=== PATIENT | male | born 1970 | race Caucasian/White ===

== ENCOUNTER 2018-03-24 07:07 | Emergency (ER) | payer SELFPAY ==
[2018-03-24 07:10] VITALS: BP 135/81; PULSE 104; RESP 18; TEMP 36.8; O2SAT 95; BMI 26.4
--- NOTE | 2018-03-24 08:02 | ED.VISSUMM ---
- ER Visit Summary Date of Service: 03/24/18 Chief Complaint: Cough [] History of Present Illness: The patient is a 47 M [presents to the emergency department complaint of cough for about a week. Patient complains of diffuse body aches as well as sore throat and headache. Patient states the cough is been nonproductive. Patient has not had any documented fever at home. 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 Patient complains of pain in his chest with cough. He denies leg pain or swelling.] Physical Examination: [HEENT-PERRLA, EOMI. Cranial nerves II through XII grossly intact. TMs clear. Mucous membranes moist. No adenopathy. Cardiovascular-regular rate and rhythm without murmur or ectopy Lungs-clear to auscultation, chest wall stable without crepitus or subcu emphysema Abdomen-normoactive bowel sounds, soft, nontender, no rebound or rigidity, no peritoneal signs. Extremities-intact ?4, normal range of motion, normal pulses, atraumatic] Test Results: [Chest x-ray obtained was normal. Influenza screen was negative.] Emergency Department Course and Treatment: [] Treatment Plan: [Patient will be given a prescription for Tessalon Perles and Naprosyn] Disposition: [Discharged home in stable condition] Impression: [Viral URI] This note was generated with [facility] dictation software. It may contain incorrect words, spelling, and punctuation that were not noted in review of the chart prior to signing ED Disposition - Plan for ED Patient: Referrals: Ramu Agarwal MD [Primary Care Provider] -
--- NOTE | 2018-03-24 08:03 | RAD_ITS ---
STUDY: X-RAY CHEST REASON FOR EXAM: Male, 47 years old. Cough. TECHNIQUE: PA and lateral views of the chest. COMPARISON: None. FINDINGS: The lungs are clear and expanded. Calcified granuloma in the lateral aspect of the left mid lung. There is no demonstrated pleural abnormality. Normal size heart. Normal mediastinum and roxanne. Normal visualized pulmonary arteries. Normal visualized aortic arch and descending thoracic aorta. 50% loss of height of a mid dorsal vertebrae. Normal visualized ribs, clavicles, and shoulders. There is no demonstrated abnormality of the visualized soft tissue structures of the upper abdomen. RAD/Chest PA and Lateral IMPRESSION: Normal x-ray examination of the chest. Electronically Signed: Min Grimm MD at 9:47 EST , Service support ,
--- NOTE | 2018-03-24 10:11 | ED.DEP ---
ED Disposition - Plan for ED Patient: Instructions: ED URI Viral Prescriptions: Benzonatate [Tessalon Perle] 200 mg PO TID PRN PRN #20 cap PRN Reason: Cough Naproxen [Naprosyn] 500 mg PO BID PRN #20 tab Referrals: Ramu Agarwal MD [Primary Care Provider] - 5-7 Days
== END 2018-03-24 10:18 | disposition home or self-care (01) ==
PROVIDERS: Emergency Provider Emergency Medicine; Family Provider Internal Medicine; PCP Internal Medicine
DX: J06.9 Acute upper respiratory infection, unspecified (principal); I10 Essential (primary) hypertension
CPT/HCPCS: 71046; 87804; 99282

== ENCOUNTER 2020-09-14 18:52 | Emergency (ER) | payer SELFPAY ==
[2020-09-14 18:55] VITALS: BP 172/119; PULSE 86; RESP 18; TEMP 37.1; O2SAT 98; BMI 28.5
--- NOTE | 2020-09-14 20:39 | RAD_ITS ---
STUDY: X-RAY - LEFT KNEE REASON FOR EXAM: Male, 49 years old. Nontraumatic pain TECHNIQUE: 3 view(s) of the knee. COMPARISON: None. FINDINGS: Normal visualized distal femur. Normal visualized proximal tibia and fibula. Normal proximal tibiofibular articulation. There is no demonstrated fracture. Normal medial femorotibial compartment. Normal lateral femorotibial compartment. Normal patellofemoral articulation. There is no demonstrated joint effusion. The soft tissue structures are unremarkable. RAD/Knee 3 Views IMPRESSION: Normal x-ray examination of the knee. Electronically Signed: Alex Somers MD at 22:08 EDT , Service support ,
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
--- NOTE | 2020-09-14 21:15 | RAD_ITS ---
STUDY: X-RAY - PELVIS AND LEFT HIP REASON FOR EXAM: Male, 49 years old. NOntraumtic pain TECHNIQUE: 3 views of the pelvis and hip. COMPARISON: None. FINDINGS: There is a non-specific bowel gas pattern. Normal visualized soft tissue structures. No visualized fracture. No avascular necrosis. Normal bilateral iliac wings, sacroiliac joints and visualized sacrum. Normal bilateral superior and inferior pubic rami. Normal pubic symphysis. Normal bilateral ischial tuberosities. Normal visualized femoral head. Normal acetabulum. Normal hip joint. RAD/HIP, UNI W/ Pelvis 2-3 Views IMPRESSION: Normal x-ray examination of the pelvis and hip. Electronically Signed: Alex Somers MD at 22:10 EDT , Service support ,
[2020-09-14] MEDS: HYDROcodone Bitartrate/Apap 5/325 Tablet PO (21:32)
[2020-09-14 22:50] VITALS: RESP 18
== END 2020-09-14 22:50 | disposition home or self-care (01) ==
PROVIDERS: Emergency Provider Emergency Medicine; PCP Internal Medicine
DX: M25.552 Pain in left hip (principal); M25.562 Pain in left knee; M10.9 Gout, unspecified; I10 Essential (primary) hypertension; Z79.52 Long term (current) use of systemic steroids; Z79.899 Other long term (current) drug therapy
CPT/HCPCS: 73502; 73562; 99285

== ENCOUNTER 2021-03-13 20:19 | Emergency (ER) | payer SELFPAY ==
[2021-03-13 20:20] VITALS: BP 160/90; PULSE 84; RESP 16; TEMP 36.2; O2SAT 100; BMI 27.3
[2021-03-13 20:34] VITALS: O2SAT 98
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
[2021-03-13 20:55] LABS: Absolute Lymphocyte Count 1.37 X10^3/uL (0.83-4.51); Absolute Neutrophil Count 3.1 X10^3/uL (2.0-7.7); Basophil# 0.11 X10^3/uL; Basophil% 1.9 % (0-1); Eosinophil# 0.29 X10^3/uL; Eosinophils% 4.9 % (0-5); Hematocrit 42.5 % (40-54); Hemoglobin 14.3 g/dL (13.0-16.5); Lymphocyte # 1.37 X10^3/ul (0.83-4.51); Lymphocyte % 23.3 % (19-41); Mean Corp Hgb Conc 33.6 g/dL (32-36); Mean Corpuscular Hgb 30.4 pg (27.0-32.0); Mean Corpuscular Volume 90.4 fL (80-94); Mean Platelet Vol. 10.4 fl (6.2-12.0); Monocyte# 0.94 X10^3/uL; NRBC Flagged by Analyzer 0 % (0-5); Neutrophil # 3.12 X10^3/uL (2.7-7.7); Neutrophil % 53.2 % (47-70); Platelet Count 204 K/mm3 (150-450); RBC Distribution Width CV 11.9 % (11.6-14.6); RBC Distribution Width SD 39.2 fl (35.1-43.9); White Blood Count 5.9 K/mm3 (4.4-11.0)
--- NOTE | 2021-03-13 21:00 | RAD_ITS ---
STUDY: X-RAY CHEST REASON FOR EXAM: Male, 50 years old. CHEST PAIN Cough, exposure to Covid Notes SICK FOR PAST 3 WEEKS, STATES I JUST CAN''T GET OVER IT. WORST COMPLAINT IS COUGH. WAS COVID POSITIVE, STARTED WITH SIMILAR SYMPTOMS SAME DAY. TECHNIQUE: XR Chest 1 View COMPARISON: 04/03/2018 FINDINGS: There is no demonstrated pleural abnormality. Normal size heart. Normal mediastinum and roxanne. Normal visualized pulmonary arteries. There is atherosclerotic calcification of the aortic arch with tortuosity. There are diffuse degenerative changes of the visualized thoracic spine. Normal visualized ribs, clavicles, and shoulders. There is no demonstrated abnormality of the visualized soft tissue structures of the upper abdomen. RAD/Chest 1 View (Portable) IMPRESSION: There are no acute findings. Electronically Signed: Angel Moyer MD at 21:28 EST ,
[2021-03-13 21:09] LABS: Anion Gap 11 (5-15); BUN 7 mg/dL (7-18); BUN/Creat Ratio 7.7 RATIO (10-20); Calcium,Total 8.2 mg/dL (8.5-10.1); Chloride 104 mmol/L (98-107); EST Glomerular Filtration Rate 94 mL/min (>60); Est Glom Filt Rate - Afr Amer 114 mL/min (>60); Glucose 86 mg/dL (74-106); Potassium 3.7 mmol/L (3.5-5.1); Sodium Level 137 mmol/L (136-145)
[2021-03-13] MEDS: Doxycycline 100 MG CAPSULE PO (22:24)
[2021-03-13] MEDS: guaiFENesin/Codeine 5 ML UDC PO (22:24)
[2021-03-13 22:31] VITALS: BP 117/70; O2SAT 98
== END 2021-03-13 23:02 | disposition home or self-care (01) ==
PROVIDERS: Emergency Provider Emergency Medicine; PCP Internal Medicine; Visit Provider Emergency Medicine
DX: U07.1 COVID-19 (principal); R19.7 Diarrhea, unspecified; I10 Essential (primary) hypertension; Z20.822 Contact with and (suspected) exposure to COVID-19; M10.9 Gout, unspecified; Z79.899 Other long term (current) drug therapy
CPT/HCPCS: 71045; 80048; 85025; 87635; 99284; A4216; U0003; U0005

== ENCOUNTER 2022-01-01 10:53 | Emergency (ER) | payer OTHER, SELFPAY ==
[2022-01-01 10:54] VITALS: BP 194/121; PULSE 87; RESP 14; TEMP 36.7; O2SAT 98; BMI 27.0
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
--- NOTE | 2022-01-01 11:13 | CT_ITS ---
STUDY: CT BRAIN WITHOUT CONTRAST REASON FOR EXAM: Male, 51 years old. Headaches. RADIATION DOSAGE (If Supplied By Facility): CTDIvol = ( 44.99 ) mGy, DLP = ( 849.54 ) mGycm TECHNIQUE: Transaxial CT imaging of the brain was performed without administration of intravenous contrast material. Individualized dose optimization techniques were used for this CT. COMPARISON: No relevant priors. FINDINGS: Normal soft tissue structures. Normal calvarium. Normal size ventricles and extra-axial spaces for the patient''s age. Normal white matter tracts of the cerebral hemispheres. Normal basal ganglia and thalami. Normal brainstem. Normal cerebellum. There is no intracranial hemorrhage. There are no findings of an acute ischemic infarction. Normal visualized paranasal sinuses. CT/Brain/Head without Contrast IMPRESSION: Normal unenhanced CT scan of the brain. Electronically Signed: Min Grimm MD at 12:42 EST ,
--- NOTE | 2022-01-01 11:17 | CT_ITS ---
STUDY: CTA CHEST, ABDOMEN T PELVIS WITH CONTRAST REASON FOR EXAM: Male, 51 years old. Dissection study. Headaches. Back pain. RADIATION DOSAGE (If Supplied By Facility): CTDIvol = ( 16.17 ) mGy, DLP = ( 995.3 ) mGycm TECHNIQUE: Transaxial imaging was performed following intravenous administration of IV 100mL [id number]-[id number]. Multiplanar coronal and sagittal images were reformatted. Individualized dose optimization techniques were used for this CT. COMPARISON: No relevant priors. FINDINGS: CHEST The lungs are normal. There is no demonstrated pleural abnormality. Normal heart and pericardium. There are multiple small lymph nodes within the mediastinum, which are normal in size and morphology most compatible with reactive lymph hyperplasia. Calcified left hilar lymph nodes. Normal unenhanced pulmonary arteries. Normal aorta arch and descending thoracic aorta. Normal osseous structures. There is no demonstrated abnormality of the visualized upper abdomen. ABDOMEN The visualized lung bases are unremarkable. The visualized portions of the heart are within normal limits. There is decreased attenuation of the liver consistent with steatosis. Normal gallbladder and extrahepatic biliary system. Normal spleen. Normal pancreas. Normal bilateral adrenal glands. Normal right kidney. Normal left kidney. Normal visualized stomach. Normal small intestine. Normal colon. The appendix is visualized and appears normal. There is scattered atherosclerotic calcification of the abdominal aorta, without a demonstrated aneurysm. Normal inferior vena cava. Normal retroperitoneum. There is a small umbilical hernia containing fat. Normal osseous structures. PELVIS Distended urinary bladder. Normal visualized small intestine. Normal visualized colon. There is no pelvic fluid. There is no pelvic lymphadenopathy or mass lesion. Normal visualized pelvic arteries. Normal abdominal wall. Normal osseous structures. CT/CTA Chst, Abd, Pel W and/or WO IMPRESSION: Normal enhanced CT chest, abdomen T pelvis examination. Electronically Signed: Min Grimm MD at 12:55 EST ,
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
[2022-01-01 11:39] LABS: Basophil# 0.06 X10^3/uL; Basophil% 1.2 % (0-1); Eosinophil# 0.11 X10^3/uL; Eosinophils% 2.2 % (0-5); Hematocrit 45.9 % (40-54); Hemoglobin 15.5 g/dL (13.0-16.5); Lymphocyte % 25.9 % (19-41); Mean Corp Hgb Conc 33.8 g/dL (32-36); Mean Corpuscular Hgb 30.9 pg (27.0-32.0); Mean Corpuscular Volume 91.4 fL (80-94); Monocyte# 0.48 X10^3/uL; Monocyte% 9.6 % (0-10); NRBC Flagged by Analyzer 0 % (0-5); Neutrophil # 3.03 X10^3/uL (2.7-7.7); Neutrophil % 60.5 % (47-70); Platelet Count 189 K/mm3 (150-450); RBC Distribution Width CV 11.9 % (11.6-14.6); RBC Distribution Width SD 40.1 fl (35.1-43.9); Red Blood Count 5.02 M/mm3 (4.6-6.2)
[2022-01-01 11:58] LABS: ALB/GLOB Ratio 1.1 RATIO (0.9-2.4); AST(SGOT) 66 U/L (15-37); Alanine Aminotransfer ALT/SGPT 123 U/L (16-61); Alkaline Phosphatase 50 U/L (45-117); Anion Gap 7 (5-15); BUN 11 mg/dL (7-18); BUN/Creat Ratio 12.5 RATIO (10-20); Calcium,Total 9.6 mg/dL (8.5-10.1); Chloride 107 mmol/L (98-107); Creatinine, Serum 0.88 mg/dL (0.70-1.30); EST Glomerular Filtration Rate 97 mL/min (>60); Est Glom Filt Rate - Afr Amer 117 mL/min (>60); Estimated Creatinine Clearance 96.08 ml/min; Globulin 3.5 g/dL (2.2-4.2); Glucose 98 mg/dL (74-106); Potassium 4.3 mmol/L (3.5-5.1); Protein, Total 7.5 g/dL (6.4-8.2); Sodium Level 140 mmol/L (136-145); Troponin-I HS 4 pg/mL (3.0-78.0)
[2022-01-01] MEDS: Ondansetron 4 MG/2 ML Vial IV (12:37)
[2022-01-01] MEDS: Morphine 4 MG/ML Syringe IV (12:37)
[2022-01-01 14:03] VITALS: BP 129/74; PULSE 64; RESP 15; O2SAT 98
== END 2022-01-01 14:04 | disposition home or self-care (01) ==
PROVIDERS: Emergency Provider Student in an Organized Health Care Education/Training Program; PCP Internal Medicine; Visit Provider Student in an Organized Health Care Education/Training Program
DX: M47.22 Other spondylosis with radiculopathy, cervical region (principal); S02.40E Zygomatic fracture, right side; S16.1XXD Strain of muscle, fascia and tendon at neck level, subsequent encounter; W22.8XXD Striking against or struck by other objects, subsequent encounter; I10 Essential (primary) hypertension; R07.9 Chest pain, unspecified
CPT/HCPCS: 70450; 70486; 71275; 72125; 74174; 80053; 84484; 85025; 93005; 96374; 96375; 99283; Q9967; A4216; J2405

== ENCOUNTER 2022-01-11 09:55 | Emergency (ER) | payer OTHER, SELFPAY ==
[2022-01-11 09:57] VITALS: BP 200/113; PULSE 92; RESP 16; TEMP 37.1; O2SAT 100; BMI 26.1
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
[2022-01-11] MEDS: predniSONE 20 MG Tablet 60 MG PO (11:49)
[2022-01-11] MEDS: Gabapentin 300 MG Capsule PO (11:49)
== END 2022-01-11 11:52 | disposition home or self-care (01) ==
PROVIDERS: Emergency Provider Emergency Medicine; PCP Internal Medicine; Visit Provider Emergency Medicine
DX: M50.121 Cervical disc disorder at C4-C5 level with radiculopathy (principal); I10 Essential (primary) hypertension; Z79.899 Other long term (current) drug therapy
CPT/HCPCS: 99283

== ENCOUNTER → 2022-02-06 | Outpatient (CLI) | payer OTHER, SELFPAY ==
--- NOTE | 2022-02-06 07:16 | MRI_ITS ---
HISTORY: cervical radiculopathy to LUE. TECHNIQUE: Multiplanar and multisequence MR images of the cervical spine were obtained without contrast. 279 images. COMPARISON: CT 01/01/2022. FINDINGS: VERTEBRAE: Cervical vertebral body heights maintained. Mild degenerative bone marrow endplate changes of C4-5. Chronic minimal anterior wedging of T3 with a small vertebral body hemangioma incidentally noted. VERTEBRAL ALIGNMENT: No anterior or posterior subluxation. SPINAL CORD: Cervical cord signal and morphology within normal limits. SOFT TISSUES: No prevertebral fluid collection. INTERVERTEBRAL DISCS: C2-3: No significant posterior disc protrusion, central canal stenosis, or foraminal narrowing. C3-4: Mild disc bulge with uncovertebral and facet arthropathy resulting in mild central canal stenosis and bilateral foraminal narrowing. C4-5: Mild posterior disc bulge osteophyte complex with uncovertebral and facet arthropathy resulting in mild central canal stenosis and moderate bilateral foraminal narrowing. C5-6: No significant posterior disc protrusion or central canal stenosis. Uncovertebral and facet arthropathy resulting in moderate left and mild right foraminal narrowing. C6-7: Mild posterior disc bulge osteophyte complex with uncovertebral and facet arthropathy resulting in minimal narrowing of the thecal sac, moderate left, and mild right foraminal narrowing. C7-T1: Mild left paracentral disc protrusion abutting the left ventral cord resulting in minimal narrowing of the thecal sac and no significant foraminal narrowing. MRI/Spine Cervical (Routine) IMPRESSION: Multilevel degenerative disc disease of the cervical spine resulting in mild spinal canal stenosis and moderate foraminal narrowing as above. Electronically Signed: Sharon Samuels MD at 9:38 EST ,
== END | disposition home or self-care (01) ==
LOC: MRI 07:16
PROVIDERS: PCP Internal Medicine; Referring Provider Physician Assistant; Visit Provider Physician Assistant
DX: S16.1XXA Strain of muscle, fascia and tendon at neck level, initial encounter (principal); M54.12 Radiculopathy, cervical region
CPT/HCPCS: 72141

== ENCOUNTER 2022-07-25 08:48 | Inpatient (IN) | payer SELFPAY ==
[2022-07-25] VITALS (8 sets, daily range): BP systolic 117–152; BP diastolic 67–98; PULSE 74–84; RESP 14–18; TEMP 36.1–37; O2SAT 94–100; BMI 25.7
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
[2022-07-25 09:31] LABS: Absolute Lymphocyte Count 1.19 X10^3/uL (0.83-4.51); Absolute Neutrophil Count 3.5 X10^3/uL (2.0-7.7); Basophil# 0.11 X10^3/uL; Eosinophil# 0.14 X10^3/uL; Eosinophils% 2.5 % (0-5); Hematocrit 48.4 % (40-54); Hemoglobin 16.1 g/dL (13.0-16.5); Lymphocyte # 1.19 X10^3/ul (0.83-4.51); Lymphocyte % 21.6 % (19-41); Mean Corp Hgb Conc 33.3 g/dL (32-36); Mean Corpuscular Volume 93.3 fL (80-94); Mean Platelet Vol. 9.9 fl (6.2-12.0); Monocyte# 0.54 X10^3/uL; Monocyte% 9.8 % (0-10); NRBC Flagged by Analyzer 0 % (0-5); Neutrophil # 3.47 X10^3/uL (2.7-7.7); Neutrophil % 63.2 % (47-70); Platelet Count 220 K/mm3 (150-450); RBC Distribution Width CV 12.2 % (11.6-14.6); RBC Distribution Width SD 42.2 fl (35.1-43.9); Red Blood Count 5.19 M/mm3 (4.6-6.2); White Blood Count 5.5 K/mm3 (4.4-11.0)
[2022-07-25 09:39] LABS: Prothrombin Time (Protime)PT. 13.3 SECONDS (11.7-14.9)
[2022-07-25 09:43] LABS: Amphetamine Urine VISTA NEGATIVE (<1000 ng/mL); Barbiturate Urine VISTA NEGATIVE (< 200 ng/mL); Benzodiazepine Urine VISTA NEGATIVE (< 200 ng/mL); Cocaine Urine VISTA NEGATIVE (< 300 ng/mL); Ecstacy Urine VISTA NEGATIVE (< 500 ng/mL); Methadone Urine VISTA NEGATIVE (< 300 ng/mL); PCP Urine VISTA NEGATIVE (< 25 ng/mL); THC Urine VISTA NEGATIVE (< 50 ng/mL); Vista UDS pH Range 7
[2022-07-25 09:46] LABS: ALB/GLOB Ratio 1.1 RATIO (0.9-2.4); AST(SGOT) 110 U/L (15-37); Alanine Aminotransfer ALT/SGPT 169 U/L (16-61); Albumin, Serum 4.1 g/dL (3.2-5.0); Alkaline Phosphatase 57 U/L (45-117); Anion Gap 9 (5-15); BUN 11 mg/dL (7-18); BUN/Creat Ratio 8.8 RATIO (10-20); Calcium,Total 8.8 mg/dL (8.5-10.1); Chloride 107 mmol/L (98-107); Creatinine, Serum 1.25 mg/dL (0.70-1.30); EST Glomerular Filtration Rate 65 mL/min (>60); Est Glom Filt Rate - Afr Amer 78 mL/min (>60); Estimated Creatinine Clearance 67.64 ml/min; Globulin 3.6 g/dL (2.2-4.2); Glucose 114 mg/dL (74-106); Potassium 4.4 mmol/L (3.5-5.1); Protein, Total 7.7 g/dL (6.4-8.2); Sodium Level 141 mmol/L (136-145)
[2022-07-25] MEDS: LORazepam 2 MG/ML Syringe 1 MG IV (10:13)
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
[2022-07-25] MEDS: Phenobarbital 32.4 MG Tablet 64.8 MG PO ×3 (13:00→20:31)
[2022-07-25] MEDS: hydrOXYzine PAM 25 MG Capsule 50 MG PO (20:31)
[2022-07-25] MEDS: traZODone 100 MG Tablet PO (20:35)
[2022-07-26] VITALS (8 sets, daily range): BP systolic 83–142; BP diastolic 46–89; PULSE 56–75; RESP 14–18; TEMP 36.4–36.7; O2SAT 95–98
[2022-07-26] MEDS: 0.9% Normal Saline 1,000 ML 999 ML IV (01:02)
[2022-07-26] MEDS: 0.9% Saline Lock 10 ML Syringe IV (02:08)
[2022-07-26] MEDS: Phenobarbital 32.4 MG Tablet 64.8 MG PO ×6 (02:08→20:28)
--- NOTE | 2022-07-26 08:56 | CASEMGMT ---
Social Work SW called Treatment Navigator with [facility] to see pt. DIAN Rhodes
--- NOTE | 2022-07-26 09:33 | PCM.PN.HOSP ---
Subjective Subjective Doing well, no issues overnight. CIWA score for Objective Data Objective Data Vital Signs: Vital Signs Temp Pulse Resp BP Pulse Ox O2 Del Method 97.8 F 56 L 14 105/64 96 Room Air 07/26/22 05:35 07/26/22 05:35 07/26/22 05:35 07/26/22 05:35 07/26/22 05:35 07/26/22 05:35 Oxygen Delivery Method Room Air Weight: 167 lb 5 oz Body Mass Index (BMI) 25.7 Intake & Output: Intake and Output for Last 24 Hours 07/25/22 07/26/22 07/27/22 03:59 03:59 03:59 Intake Total 2200 / 2200 400 / 400 Balance 2200 / 2200 400 / 400 Lab / Micro Data Result Diagrams: 07/25/22 09:23 07/25/22 09:23 Labs: Laboratory Results - last 24 hr 07/25/22 09:23: PT 13.3, INR 1.0 07/25/22 09:23: Sodium 141, Potassium 4.4, Chloride 107, Carbon Dioxide 25.0, Anion Gap 9, BUN 11, Creatinine 1.25, Estim Creat Clear Calc 67.64, Est GFR (MDRD) Af Amer 78, Est GFR (MDRD) Non-Af 65, BUN/Creatinine Ratio 8.8 L, Glucose 114 H, Calcium 8.8, Total Bilirubin 0.30, AST 110 H, ALT 169 H, Alkaline Phosphatase 57, Total Protein 7.7, Albumin 4.1, Globulin 3.6, Albumin/Globulin Ratio 1.1 07/25/22 09:23: Ethyl Alcohol 46.0 07/25/22 09:23: Urine Opiates Screen NEGATIVE, Urine Methadone Screen NEGATIVE, Ur Barbiturates Screen NEGATIVE, Ur Phencyclidine Scrn NEGATIVE, Ur Amphetamines Screen NEGATIVE, MDMA (Ecstasy) Screen NEGATIVE, U Benzodiazepines Scrn NEGATIVE, Urine Cocaine Screen NEGATIVE, U Cannabinoids Screen NEGATIVE Physical Exam Narrative General: Alert, Oriented x3, Cooperative, No apparent distress HEENT: Atraumatic, PERRLA, EOMI, Normocephalic Oral: Moist Mucosa Neck: Supple, No JVD Lungs: Clear to auscultation, Normal air movement, No rhonchi, No wheeze, No rales Cardiovascular: Regular rate, Regular Rhythm, Normal S1, Normal S2, No murmurs Abdomen: Soft, Non Tender, Non-Distended, No Hepato-splenomegaly Extremities: No edema, Capillary Refill Less than 3 Seconds Skin: No rashes, No breakdown Musculoskeletal: No Tenderness to Palpation of Joints or Extremities Neurological: Cranial nerves II-XII grossly intact, Motor Exam 5/5 strength throughout, Sensory exam intact to light touch and pain Psych/Mental Status: Normal Affect, Appropriate Assessment & Plan Assessment/Plan (1) Alcohol abuse with withdrawal without complication: PLAN: Plan 1. Acute alcohol withdrawal/anxiety ? Continue with the alcohol withdrawal protocol ? We will have him follow-up with 180 to develop an outpatient plan ? He does have hepatic steatosis with stable LFTs recommend outpatient follow-up 2. Hypertension ? Blood pressures are stable ? Resume his home blood pressure medication DVT: Ambulation Charges/Coding Visit Charges Inpatient E&M: 32307 Subs Hosp L2
[2022-07-26] MEDS: amLODIPine 10 MG Tablet PO (10:04)
[2022-07-26] MEDS: Thiamine Hydrochloride 100 MG Tablet PO (10:04)
[2022-07-26] MEDS: Folic Acid 1 MG Tablet PO (10:04)
[2022-07-26] MEDS: Lisinopril 20 MG Tablet PO (10:04)
[2022-07-26] MEDS: Metoprolol(XL)Succ 100 MG Tablet PO (10:04)
[2022-07-26] MEDS: Allopurinol 100 MG Tablet PO (10:04)
--- NOTE | 2022-07-26 15:11 | CASEMGMT ---
Social Work SW met w/pt, SDOH triggered and pt is self pay. SDOH completed, see that assessment for further details. Pt confirms has no insurance. He states he normally comes here or goes to [facility], states he qualifies for financial assist with [facility]. Pt open to resources. SW gave pt a Medicaid application w/800 number, information for prescription assist, [employer] and [facility]. SW encouraged pt to call [facility] to apply for Medicaid when he gets home. SW also advised pt when gets bill from hospital to call the number on the back for options regarding assist w/bill. Pt states understanding. No further social service needs, pt going home w/outpt follow up as set up with treatment navigator. DIAN Rhodes
--- NOTE | 2022-07-26 15:13 | ADDICTION ---
Pt was met with to complete ASAM, DUDIT, AUDIT, MT Status, D/C plan, JOSE LUIS, and RAMP assessment. Pt admits that he is struggling with high anxiety and difficulty coping with daily life stressors without the use of alcohol. Pt appears to meet criteria for 4.0LoC and pt would benefit from following up with outpatient YULY and MH assessment. Pt reports that he is not interested in following up with any [facility]ULY or MH services and [facility]. Pt has been provided with multiple resources should he change his mind. Pt's D/C plan to go home and continue to think about following up with tx, peer support, or mutual support AA meetings. Pt's to transport pt home.
[2022-07-26] MEDS: traZODone 100 MG Tablet PO (20:28)
[2022-07-27] MEDS: Phenobarbital 32.4 MG Tablet 64.8 MG PO ×6 (01:03→20:50)
[2022-07-27 02:00] VITALS: BP 113/64; PULSE 60; RESP 18; TEMP 36.4; O2SAT 97
[2022-07-27 05:18] VITALS: BP 110/62; PULSE 62; RESP 16; TEMP 36.1; O2SAT 98
[2022-07-27 08:43] VITALS: BP 106/85; PULSE 60; RESP 18; TEMP 36.6; O2SAT 97
[2022-07-27] MEDS: amLODIPine 10 MG Tablet PO (08:47)
[2022-07-27] MEDS: Thiamine Hydrochloride 100 MG Tablet PO (08:47)
[2022-07-27] MEDS: Lisinopril 20 MG Tablet PO (08:47)
[2022-07-27] MEDS: Allopurinol 100 MG Tablet PO (08:47)
[2022-07-27] MEDS: Folic Acid 1 MG Tablet PO (08:47)
--- NOTE | 2022-07-27 09:18 | PN.HOSP_ITS ---
Subjective Subjective Well, no issues overnight. CIWA score of 2 Objective Data Objective Data Vital Signs: Vital Signs Temp Pulse Resp BP Pulse Ox O2 Del Method 97.8 F 60 18 106/85 H 97 Room Air 07/27/22 08:43 07/27/22 08:43 07/27/22 08:43 07/27/22 08:43 07/27/22 08:43 07/27/22 08:43 Oxygen Delivery Method Room Air Weight: 167 lb 5.011 oz Body Mass Index (BMI) 25.7 Intake & Output: Intake and Output for Last 24 Hours 07/26/22 07/27/22 07/28/22 03:59 03:59 03:59 Intake Total 2200 / 2200 1500 / 1500 Balance 2200 / 2200 1500 / 1500 Lab / Micro Data Result Diagrams: 07/25/22 09:23 07/25/22 09:23 Physical Exam Narrative General: Alert, Oriented x3, Cooperative, No apparent distress HEENT: Atraumatic, PERRLA, EOMI, Normocephalic Oral: Moist Mucosa Neck: Supple, No JVD Lungs: Clear to auscultation, Normal air movement, No rhonchi, No wheeze, No rales Cardiovascular: Regular rate, Regular Rhythm, Normal S1, Normal S2, No murmurs Abdomen: Soft, Non Tender, Non-Distended, No Hepato-splenomegaly Extremities: No edema, Capillary Refill Less than 3 Seconds Skin: No rashes, No breakdown Musculoskeletal: No Tenderness to Palpation of Joints or Extremities Neurological: Cranial nerves II-XII grossly intact, Motor Exam 5/5 strength thro ughout, Sensory exam intact to light touch and pain Psych/Mental Status: Normal Affect, Appropriate Assessment & Plan Assessment/Plan (1) Alcohol abuse with withdrawal without complication: PLAN: Plan 1. Acute alcohol withdrawal/anxiety ? Continue with the alcohol withdrawal protocol ? Met with 180, he refuses any assistance on discharge therefore success is limited ? He does have hepatic steatosis with stable LFTs recommend outpatient follow-up 2. Hypertension ? Blood pressures are stable ? Resume his home blood pressure medication DVT: Ambulation Charges/Coding Visit Charges Inpatient E&M: 41706 Subs Hosp L2
[2022-07-27 10:10] VITALS: BP 120/88; PULSE 71; RESP 16; TEMP 36.6; O2SAT 97
[2022-07-27] MEDS: Metoprolol(XL)Succ 100 MG Tablet PO (10:10)
[2022-07-27 16:15] VITALS: BP 120/78; PULSE 73; RESP 16; TEMP 36.8; O2SAT 97
[2022-07-27 20:48] VITALS: BP 125/77; PULSE 74; RESP 18; TEMP 36.6; O2SAT 96
[2022-07-28 03:04] VITALS: BP 122/70; PULSE 61; RESP 18; TEMP 36.4; O2SAT 95
[2022-07-28] MEDS: Phenobarbital 32.4 MG Tablet 64.8 MG PO ×2 (03:06→09:49)
--- NOTE | 2022-07-28 07:53 | PCM.PN.HOSP ---
Reason for Visit Reason for Visit: Diagnoses Alcohol abuse with withdrawal, uncomplicated (07/25/22) Anxiety disorder, unspecified (07/25/22) Essential (primary) hypertension (07/25/22) Fatty (change of) liver, not elsewhere classified (07/25/22) Gout, unspecified (07/25/22) Prediabetes (07/25/22) Objective Data Objective Data Vital Signs: Vital Signs Temp Pulse Resp BP Pulse Ox O2 Del Method 97.6 F L 61 18 122/70 H 95 Room Air 07/28/22 03:04 07/28/22 03:04 07/28/22 03:04 07/28/22 03:04 07/28/22 03:04 07/28/22 03:04 Oxygen Delivery Method Room Air Weight: 75.892 kg Body Mass Index (BMI) 25.7 Intake & Output: Intake and Output for Last 24 Hours 07/26/22 07/27/22 07/28/22 23:59 23:59 23:59 Intake Total 3000 / 3000 1060 / 1060 Balance 3000 / 3000 1060 / 1060 Lab / Micro Data Result Diagrams: 07/25/22 09:23 07/25/22 09:23 Physical Exam Narrative General: Alert, Oriented x3, Cooperative, No apparent distress HEENT: Atraumatic, PERRLA, EOMI, Normocephalic Oral: Moist Mucosa Neck: Supple, No JVD Lungs: Clear to auscultation, Normal air movement, No rhonchi, No wheeze, No rales Cardiovascular: Regular rate, Regular Rhythm, Normal S1, Normal S2, No murmurs Abdomen: Soft, Non Tender, Non-Distended, No Hepato-splenomegaly Extremities: No edema, Capillary Refill Less than 3 Seconds Skin: No rashes, No breakdown Musculoskeletal: No Tenderness to Palpation of Joints or Extremities Neurological: Cranial nerves II-XII grossly intact, Motor Exam 5/5 strength throughout, Sensory exam intact to light touch and pain Psych/Mental Status: Normal Affect, Appropriate Assessment & Plan Assessment/Plan (1) Alcohol abuse with withdrawal without complication: PLAN: Plan 1. Acute alcohol withdrawal/anxiety ? Continue with the alcohol withdrawal protocol ? Met with 180, he refuses any assistance on discharge therefore success is limited ? He does have hepatic steatosis with stable LFTs recommend outpatient follow-up 2. Hypertension ? Blood pressures are stable ? Resume his home blood pressure medication DVT: Ambulation
[2022-07-28 07:57] VITALS: BP 123/77; PULSE 54; RESP 16; TEMP 36.4; O2SAT 97
[2022-07-28 08:01] VITALS: PULSE 60
[2022-07-28] MEDS: Thiamine Hydrochloride 100 MG Tablet PO (08:12)
[2022-07-28] MEDS: Folic Acid 1 MG Tablet PO (08:12)
[2022-07-28 09:43] VITALS: PULSE 67
[2022-07-28] MEDS: Metoprolol(XL)Succ 100 MG Tablet PO (09:43)
[2022-07-28] MEDS: Allopurinol 100 MG Tablet PO (09:43)
[2022-07-28] MEDS: Lisinopril 20 MG Tablet PO (09:44)
[2022-07-28] MEDS: amLODIPine 10 MG Tablet PO (09:44)
--- NOTE | 2022-07-28 10:18 | PHA.DC.MR ---
Pharmacy Service has performed discharge medication reconciliation for this patient. The patient's discharge medication list was reviewed for discrepancies and discrepancies were resolved. Home Medications allopurinol 100 mg tablet 100 mg PO DAILY 09/14/20 metoprolol succinate 100 mg tablet,extended release 24 hr 100 mg PO DAILY 09/14/20 amlodipine 10 mg tablet 10 mg PO DAILY . 07/25/22 lisinopril 20 mg tablet 20 mg PO DAILY HTN 07/25/22
--- NOTE | 2022-07-28 11:04 | PCM.DC.SUM ---
Providers Date of Admission: 07/25/22 Date of Discharge: 07/28/22 Primary Care Physician: Dr. Ramu Agarwal MD Reason For Visit: ETOH ABUSE W/ WITHDRAWAL Diagnosis Discharge Diagnosis (1) Alcohol abuse with withdrawal without complication: Status: Acute Code(s): F10.130 - Alcohol abuse with withdrawal, uncomplicated Medications at Discharge Home Medications allopurinol 100 mg tablet 100 mg PO DAILY 09/14/20 metoprolol succinate 100 mg tablet,extended release 24 hr 100 mg PO DAILY 09/14/20 amlodipine 10 mg tablet 10 mg PO DAILY . 07/25/22 lisinopril 20 mg tablet 20 mg PO DAILY HTN 07/25/22 Hospital Course Summary of Care Provided Minutes Spent on Discharge: 35 Hospital Course: Patient is a 51-year-old gentleman with history of chronic alcohol dependence admitted with acute alcohol withdrawal 1. Acute alcohol withdrawal patient admitted to regular nursing floor managed with alcohol withdrawal protocol using phenobarb taper 2. Hypertension - Blood pressure controlled, home medications continued with dose adjustment as needed 3. Gout ? Patient is on allopurinol did continue 4. DVT prophylaxis ? Low risk did encourage ambulation Physical Exam Narrative GENERAL: cooperative HEENT: Atraumatic; normocephalic EYES; Anicteric, Normal Conjunctiva NECK; supple, normal thyroid, RESPIRATORY: Diminished to auscultation CARDIOVASCULAR: Regular S1 S2, GI: soft, normoactive bowel sounds, : No Renal angle tenderness; EXTREMITIES: No edema, no clubbing, MUSCULOSKELETAL: no muscle wasting NEURO: Awake; no lateralizing signs. SKIN: No Rash PSYCH; Flat affect Weight / BMI Weight Weight: 75.892 kg Body Mass Index (BMI) 25.7 ABG / Lab / Microbiology Data Result Diagrams: 07/25/22 09:23 07/25/22 09:23 D/C Instructions Discharge Diet: No restrictions Discharge Activity: Return to Normal Activity Call your doctor if you observe: Fever of 101 or Higher, Shortness of breath, Fainting spells and Chest pain Meaningful Use Info Meaningful Use Diagnoses (Choose all that apply): None applicable Discharge Plan Admission Admit Date/Time: 07/25/22 10:18 Attending Provider: Cam Gregory Primary Care Provider: Ramu Agarwal Consulting Providers: Anika Falk ; Ney Andrews Discharge Orders/Prescriptions Prescriptions: Continued metoprolol succinate 100 mg tablet extended release 24 hr 100 mg PO DAILY Label Comments: take 1 tablet by mouth once daily allopurinol 100 mg tablet 100 mg PO DAILY Label Comments: take 1 tablet by mouth once daily for gout lisinopril 20 mg tablet 20 mg PO DAILY Label Comments: take 1 tablet by mouth once daily amlodipine 10 mg tablet 10 mg PO DAILY Label Comments: take 1 tablet by mouth once daily Referrals / Follow Up: Ramu Agarwal MD [Primary Care Provider] - Within 2 Weeks Disposition Disposition (needs filled in before D/C Order can be placed): Home, Self Care Charges/Coding Visit Charges Inpatient E&M: 27566 Disch Hosp >30min
== END 2022-07-28 10:18 | disposition home or self-care (01) | DRG 897 ==
LOC: ED 09:33 → MS3 11:19
PROVIDERS: Admitting Provider Internal Medicine; Emergency Provider Emergency Medicine; PCP Internal Medicine; Visit Provider Internal Medicine
DX: F10.130 Alcohol abuse with withdrawal, uncomplicated (principal); F41.9 Anxiety disorder, unspecified; K76.0 Fatty (change of) liver, not elsewhere classified; I10 Essential (primary) hypertension; M10.9 Gout, unspecified; R73.03 Prediabetes; Y90.2 Blood alcohol level of 40-59 mg/100 ml
CPT/HCPCS: 80053; 80307; 82077; 85025; 85610; 99284; J7030; A4216

== ENCOUNTER 2024-02-23 07:36 | Emergency (ER) | payer SELFPAY ==
[2024-02-23 07:37] VITALS: BP 137/102; PULSE 103; RESP 20; TEMP 37.2; O2SAT 99; BMI 26.4
--- NOTE | 2024-02-23 07:50 | EKG12_ITS ---
Test Reason : CP Blood Pressure : */* mmHG Vent. Rate : 103 BPM Atrial Rate : 103 BPM P-R Int : 184 ms QRS Dur : 82 ms QT Int : 328 ms P-R-T Axes : 41 36 22 degrees QTcB Int : 429 ms Sinus tachycardia Otherwise normal ECG Confirmed by Jas Patel ([id number]), editorial director PILI COOK ([id number]) on 02/24/2024 8:24:49 AM Referred By: AR Confirmed By: Jas Patel
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
[2024-02-23 08:03] LABS: Basophil# 0.09 X10^3/uL; Basophil% 1.2 % (0-1); Eosinophils% 1.3 % (0-5); Hematocrit 48.8 % (40-54); Hemoglobin 16.9 g/dL (13.0-16.5); Lymphocyte % 19.8 % (19-41); Mean Corp Hgb Conc 34.6 g/dL (32-36); Mean Corpuscular Hgb 31.2 pg (27.0-32.0); Mean Corpuscular Volume 90.2 fL (80-94); Mean Platelet Vol. 10.2 fl (6.2-12.0); Monocyte# 0.85 X10^3/uL; Monocyte% 11.2 % (0-10); NRBC Flagged by Analyzer 0 % (0-5); Neutrophil # 4.97 X10^3/uL (2.7-7.7); Neutrophil % 65.4 % (47-70); Platelet Count 219 K/mm3 (150-450); RBC Distribution Width CV 12.3 % (11.6-14.6); Red Blood Count 5.41 M/mm3 (4.6-6.2); White Blood Count 7.6 K/mm3 (4.4-11.0)
--- NOTE | 2024-02-23 08:06 | RAD_ITS ---
HISTORY: chest pain. TECHNIQUE: XR Chest 1 View. COMPARISON: 03/13/2021. FINDINGS: CARDIOMEDIASTINAL BORDERS: Cardiac silhouette within normal limits in size. Mediastinal contour unremarkable. LUNGS: Chronic small calcified granuloma in the left midlung. PLEURA: No pleural effusion or pneumothorax seen. OSSEOUS STRUCTURES: Mild degenerative change of the right shoulder. RAD/Chest 1 View (Portable) IMPRESSION: No acute cardiopulmonary process identified. Electronically Signed: Sharon Samuels MD at 8:38 EST ,
[2024-02-23 08:16] LABS: D-Dimer Quantitative (DVT/PE) 0.27 FEU/ug/m (0.27-0.49)
[2024-02-23 08:21] LABS: Anion Gap 8 (5-15); BUN 18 mg/dL (7-18); Calcium,Total 9.9 mg/dL (8.5-10.1); Chloride 101 mmol/L (98-107); EST Glomerular Filtration Rate 83 mL/min (>60); Est Glom Filt Rate - Afr Amer 100 mL/min (>60); Estimated Creatinine Clearance 82.65 ml/min; Glucose 119 mg/dL (74-106); Potassium 4.4 mmol/L (3.5-5.1); Sodium Level 134 mmol/L (136-145); Troponin-I HS (w/2H Reflex) 6 pg/mL (3.0-78.0)
[2024-02-23 08:36] VITALS: BP 174/108; BP 185/107; PULSE 81; PULSE 89; RESP 18; O2SAT 98; O2SAT 99
[2024-02-23 09:00] VITALS: BP 174/104; PULSE 82; RESP 19; O2SAT 99
[2024-02-23 09:58] LABS: Reflex Troponin-HS? (from REC) Y
[2024-02-23 10:00] VITALS: BP 158/124; PULSE 77; RESP 13; O2SAT 98
[2024-02-23] MEDS: amLODIPine 10 MG Tablet PO (10:11)
[2024-02-23] MEDS: Metoprolol(XL)Succ 100 MG Tablet PO (10:11)
[2024-02-23 10:35] LABS: Troponin-I HS 6 pg/mL (3.0-78.0)
[2024-02-23 10:48] VITALS: BP 175/106; PULSE 77; RESP 13; TEMP 37.2; O2SAT 98
[2024-02-23 10:58] VITALS: BP 175/106
== END 2024-02-23 10:52 | disposition home or self-care (01) ==
PROVIDERS: Emergency Provider Emergency Medicine; PCP Internal Medicine; Visit Provider Emergency Medicine
DX: R07.9 Chest pain, unspecified (principal); R25.1 Tremor, unspecified; I10 Essential (primary) hypertension; R05.9 Cough, unspecified; F17.220 Nicotine dependence, chewing tobacco, uncomplicated; M10.9 Gout, unspecified
CPT/HCPCS: 71045; 80048; 84484; 85025; 85379; 87631; 93005; 99285; A4216

== ENCOUNTER → 2025-01-17 | Outpatient (CLI) | payer BC, SELFPAY ==
[2025-01-17 16:58] LABS: Hematocrit 42.1 % (40-54); Hemoglobin 13.8 g/dL (13.0-16.5); Immature Granulocytes Count 0.030 X10^3/uL (0.0-0.0); Mean Corp Hgb Conc 32.8 g/dL (32-36); Mean Corpuscular Volume 86.3 fL (80-94); Mean Platelet Vol. 10.6 fl (6.2-12.0); NRBC Flagged by Analyzer 0 % (0-5); Platelet Count 231 K/mm3 (150-450); RBC Distribution Width CV 12.0 % (11.6-14.6); RBC Distribution Width SD 38.1 fl (35.1-43.9); Red Blood Count 4.88 M/mm3 (4.6-6.2); White Blood Count 5.6 K/mm3 (4.4-11.0)
[2025-01-17 17:20] LABS: AST(SGOT) 27 U/L (<=37); Alanine Aminotransfer ALT/SGPT 37 U/L (<=46); Albumin, Serum 4.7 g/dL (3.5-5.0); Alkaline Phosphatase 59 U/L (40-129); Anion Gap 13 (5-15); BUN 18 mg/dL (4-19); BUN/Creat Ratio 17.9 RATIO (10-20); Calcium,Total 10.4 mg/dL (7.6-11.0); Carbon Dioxide 23.4 mmol/L (21.0-32.0); Chloride 102 mmol/L (98-108); Cholesterol 198 mg/dL (<=200); Globulin 2.9 g/dL (2.2-4.2); Glucose 86 mg/dL (70-99); Low Density Lipoprotein Calc. 117 mg/dL; Potassium 4.4 mmol/L (3.3-5.1); Triglycerides 241 mg/dL; Very Low Density Lipoprotein 48 mg/dL (5-40); cholesterol:hdl ratio screen 5.14
== END | disposition home or self-care (01) ==
DX: Z13.1 Encounter for screening for diabetes mellitus (principal); Z13.220 Encounter for screening for lipoid disorders; Z13.6 Encounter for screening for cardiovascular disorders
CPT/HCPCS: 36415; 80053; 80061; 83036; 84443; 85025

== ENCOUNTER → 2025-02-07 | Outpatient (CLI) | payer MEDICAID, SELFPAY ==
--- NOTE | 2025-02-07 13:30 | RAD_ITS ---
PROCEDURE: KNEE 4 OR MORE VIEWS 02/07/2025 REASON FOR EXAM: PAIN IN KNEE TECHNIQUE: Procedure Code: RADKN Modality: DX Procedure: KNEE 4 OR MORE VIEWS FINDINGS: There no acute fractures. There are no dislocations. The joint spaces are well- maintained and the articular surfaces are intact. Bony mineralization is normal. There are no periosteal reactions or aggressive osseous lesions. Trace joint effusion. RAD/Knee 4 or More Views IMPRESSION: No acute osseous findings. Trace joint effusion. Reading Location: [id number]
--- NOTE | 2025-02-07 13:30 | RAD_ITS ---
PROCEDURE: HIPS B/L MIN 2 VIEWS W/ PELVIS 02/07/2025 REASON FOR EXAM: HIP PAIN TECHNIQUE: Procedure Code: RADHPELP Modality: DX Procedure: HIPS B/L MIN 2 VIEWS W/ PELVIS FINDINGS: There are no acute fractures. There are no dislocations. There are multiple pelvic phleboliths. There is joint space narrowing with osteophytosis in both hips. Bony mineralization is normal. There are no periosteal reactions. There are no aggressive osseous lesions. The pelvic ring is intact. RAD/Hips B/L min 2 views w/ Pelvis IMPRESSION: No acute osseous findings. Degenerative changes of both hips. Reading Location: [id number]
--- NOTE | 2025-02-07 13:30 | RAD_ITS ---
PROCEDURE: KNEE 4 OR MORE VIEWS 02/07/2025 REASON FOR EXAM: KNEE PAIN TECHNIQUE: Procedure Code: RADKN Modality: DX Procedure: KNEE 4 OR MORE VIEWS FINDINGS: There no acute fractures. There are no dislocations. The joint spaces are well- maintained and the articular surfaces are intact. Bony mineralization is normal. There are no periosteal reactions or aggressive osseous lesions. There are no soft tissue irregularities. RAD/Knee 4 or More Views IMPRESSION: No acute osseous findings. Reading Location: [id number]
== END | disposition home or self-care (01) ==
LOC: RAD 13:01
DX: M25.561 Pain in right knee (principal); M25.552 Pain in left hip; M25.551 Pain in right hip
CPT/HCPCS: 73521; 73564